=== PATIENT | male | born 1965 | race Caucasian/White ===

== ENCOUNTER 2021-04-05 08:25 | Day surgery (SDC) | payer OTHER ==
[2021-04-04 11:31] LABS: Basophils % 1.2 % (0-1.3); Hematocrit 44.2 % (39.6-49.0); Lymphocytes % 27.4 % (15.3-44.8); MPV 8.2 fL (7.6-11.3); RBC Red Blood Cell Count 5.07 M/uL (4.33-5.43)
--- NOTE | 2021-04-04 11:33 | RAD REPORT ---
EXAM DESCRIPTION: RAD - Chest Pa And Lat (2 Views) - 04/04/2021 11:28 am CLINICAL HISTORY: preop Chest pain. COMPARISON: <Comparisons> FINDINGS: The lungs are clear. The heart is mildly to moderately enlarged. No displaced fractures. S timulator device is present. Cervical spine hardware present. IMPRESSION: Cardiomegaly is noted.
[2021-04-04 11:35] LABS: Protime INR 1.01
[2021-04-04 11:46] LABS: Potassium 4.4 mmol/L (3.5-5.1)
[2021-04-04 12:38] LABS: Blood Morphology Comment NOT SEEN (NOT SEEN); Platelet Estimate ADEQ
[2021-04-05] MEDS ORDERED: NA CHLORIDE 0.9% 500 ML ONE (08:40)
[2021-04-05] MEDS ORDERED: ATROPINE SULF 1 MG/10 ML SYR IV ONE (09:15)
[2021-04-05] MEDS ORDERED: FENTANYL CITR 100 MCG/2 ML ONE (09:15)
[2021-04-05] MEDS ORDERED: MIDAZOLAM HCL 2 MG/2 ML INJ ONE (09:15)
[2021-04-05] MEDS ORDERED: NA CHLORIDE 0.9% 0 ML ONE (09:16)
[2021-04-05] MEDS ORDERED: HEPA 1000U/500MLS 1,000 UNIT/500 ML BAG IV ONE (09:16)
[2021-04-05 11:38] VITALS: TEMP 97
[2021-04-05 12:14] VITALS: BP 109/60; O2SAT 99
--- NOTE | 2021-04-05 13:25 | OP ---
Surgeon: Karl Gregorio MD Senior Gl Accountant: Mr. Varinder Pressley. The patient will be at bedrest for 2 hours after the procedure and he will see me in the office in 2 weeks. No change in medical therapy for now. Procedures Performed: Admitted as an outpatient on 04/05/2021 for left heart catheterization, select [place]ena coronary arteriogram, left ventriculogram. Indication: Chest pain, abnormal stress test. Mr. Saul is 55. Brought to the clinical laboratory manager today as an outpatient. He has a history of hypertension, chronic pain, neuropathy, and hypothyroidism. Had a r ecent positive stress test. Procedure In Detail: Brought to the clinical laboratory manager as an outpatient, prepped and draped in the routine jennifer rile fashion. Given Versed and fentanyl for sedation. A 6-Barbadian sheath introduced in the right com mon femoral artery successfully. We used a Seldinger technique with 6-Barbadian sheath and 10 mL of Xyl ocaine. Angiography there was normal. Angio-Seal was used to close the case. JL4 and JR4 catheters were used to do the diagnostic catheterization. He had a very large vessel. Normal LAD, circumflex , left main, and OM. The RCA showed what appeared to be a healed spontaneous dissection at the dista l RCA that is not flow-limiting. There were no complications. Blood Loss: 5 mL. Anesthesia: Total conscious sedation 45 minutes. Postoperative Diagnoses: Coronary artery disease, status post spontaneous dissection of the RCA with good distal flow. Plan: Plan is for medical therapy. CONNOR/SHANTEL Voice ID: [id number] Report ID: [id number]
== END 2021-04-05 12:05 | disposition home or self-care (01) ==
LOC: CCL 08:25
DX: I25.10 Atherosclerotic heart disease of native coronary artery without angina pectoris (principal); I10 Essential (primary) hypertension; I49.3 Ventricular premature depolarization; G47.33 Obstructive sleep apnea (adult) (pediatric); G62.9 Polyneuropathy, unspecified; G89.29 Other chronic pain; M54.9 Dorsalgia, unspecified; E03.9 Hypothyroidism, unspecified; E66.9 Obesity, unspecified; Z68.39 Body mass index [BMI] 39.0-39.9, adult; Z20.822 Contact with and (suspected) exposure to COVID-19; Z82.49 Family history of ischemic heart disease and other diseases of the circulatory system
CPT/HCPCS: 85025; 80048; 36415; 85610; 85730; 71046; 93458; U0003; C1893; C1760; J2250; J3010; J7040; J1644; J0583